=== PATIENT | female | born 1935 | race Caucasian/White ===

== ENCOUNTER 2017-09-08 11:22 | Observation (INO) | payer OTHER ==
[~2017-09-08] VITALS: Ht 162.6 cm; Wt 64.9 kg
[2017-09-08] VITALS (8 sets, daily range): BP systolic 122–142; BP diastolic 60–84; PULSE 60–121; TEMP 36.3–36.6; O2SAT 93–96; Ht 162.6 cm; Wt 64.9 kg
[2017-09-08] MEDS ORDERED: WARF5TAB90 PO (12:48)
[2017-09-08] MEDS ORDERED: NIFE30TA83 PO (12:48)
[2017-09-08] MEDS ORDERED: SIMV20TA2 PO (12:48)
[2017-09-08] MEDS ORDERED: ASPI81TA28 PO (12:48)
[2017-09-08] MEDS ORDERED: CLON0.2T PO (12:48)
[2017-09-08] MEDS ORDERED: HYZ/10015 PO (12:48)
[2017-09-08] MEDS ORDERED: LPR100 PO ×2 (12:48→15:35)
[2017-09-08] MEDS ORDERED: CLR10 PO (12:48)
--- NOTE | 2017-09-08 13:25 | History & Physical Bridge Note ---
H&P Re-Evaluation Bridge Note: I have examined the patient, reviewed the History & Physical and in the interval since the performance of the History & Physical I have noted the following changes of clinical significance: No changes noted
--- NOTE | 2017-09-08 13:28 | History and Physical ---
History & Physical Date Sep 08, 2017. Chief Complaint palpitations, SOB History of Present Illness The patient is a 81 year old female with complaints of SOB and palpitations Past Medical/Surgical History htn persistent atrial flutter hld dm huey ckd stage IV renal artery stenosis gerd Additional History Hepatic Disease: No Endocrine Disorder: No Kidney Disease: Yes Hypertension: Yes Heart Disease: Yes Bleeding Tendencies: No Infectious Diseases: No Home Medications Scheduled Aspirin (Aspirin Ec), 81 MG PO DAILY Hctz/Losartan (Hyzaar 25MG/100MG), 1 TAB PO DAILY Loratadine (Claritin), 10 MG PO DAILY Metoprolol Tartrate (Metoprolol Tartrate), 1 TAB PO BID Nifedipine Ext Rel (Procardia Xl Ext Rel), 90 MG PO HS Simvastatin (Zocor), 1 TAB PO HS Warfarin Sodium (Coumadin), 1 TAB PO DIRECTED Scheduled PRN Clonidine Hcl (Catapres), 1-2 TAB PO DAILY PRN for for Blood pressure Physical Examination Skin: warm/dry, no rash Head: normocephalic, atraumatic Neck: supple Respiratory/Chest: lungs clear, normal breath sounds Cardiovascular: no edema, no murmur, + abnormal rate, + abnormal rhythm Abdomen / GI: normal bowel sounds, non tender Neurologic/Psych: alert, oriented x 3 Diagnosis 1. persistent atrial flutter with RVR sympotmatic [id number] 5 htn hld dm huey ckd stage iv renal artery stenosis gerd ASA Classification: ASA Class III Plan of Treatment -for atrial flutter ablation and EPS; again explained the procedure and potential risks. She expressed an understanding and consent signed. She has had therapeutic INR for the last 4 weeks on a weekly basis-no CHANTAL needed.
--- NOTE | 2017-09-08 13:29 | Pre Sedation Assessment ---
Pre Sedation Assessment General Date of Sedation: Sep 08, 2017. Vital Signs Past 12 Hours Date Time Temp Pulse Resp B/P (MAP) Pulse Ox O2 Delivery O2 Flow Rate FiO2 09/08/17 12:49 36.6 121 16 141/84 (103) 96 Room Air Review Cardiovascular: + tachycardia, + irregularly irregular Lungs: lungs clear, normal breath sounds Pre-Sedation Airway Assessment Smoking Status: Never Smoker Hx of Sleep Apnea: No Short Thick Neck: No Thyro-mental Distance: < or =3 Finger Breadths Oral Cavity: Dentures Mallampati Classification: Class III ASA Classification: Class II NPO Status Date of Last Intake of Fluids: Sep 07, 2017 Time of Last Intake of Fluids: 1999 Date of Last Intake of Solids: Sep 07, 2017 Time of Last Intake of Solids: 1999 Procedure Planning Contraindications for Sedation: None Current Medications Reviewed: Yes Notes The planned sedation has been discussed with the patient. Informed Consent was obtained. I have identified the patient, determined the appropriateness of sedation and have assessed the patient immediately prior to the procedure. All medicine(s) and interventions are by my order.
[2017-09-08] MEDS ORDERED: FENTANYL CITRATE INJ 50 MCG/1 ML 2 ML VIAL ONE ×2 (13:44→14:34)
[2017-09-08] MEDS ORDERED: MIDAZOLAM HCL 5 MG/ML 1 ML VIAL ONE (13:44)
[2017-09-08] MEDS ORDERED: HEPARIN SOD (PORCINE) 1000 UNIT/ML 10 ML VIAL ONE (13:48)
[2017-09-08] MEDS ORDERED: ACETAMINOPHEN 325 MG TAB PO PRN (15:30)
--- NOTE | 2017-09-08 15:31 | Post Sedation Assessment ---
Post Sedation Assessment General Date of Sedation Sep 08, 2017. Vital Signs: Vital Signs Past 12 Hours Date Time Temp Pulse Resp B/P (MAP) Pulse Ox O2 Delivery O2 Flow Rate FiO2 09/08/17 12:49 36.6 121 16 141/84 (103) 96 Room Air Post Procedure Recovery Score Activity: (2) Moves 4 extremities * Respiration: (2) Deep breath/cough Circulation: (2) +/-20% PreAnes Value Consciousness: (2) Fully Awake Oxygen Saturation: (2) > 92% On Room Air Post Anesthesia Score: 10 Discharge Sedation Level of Care: Fast Track Phase II Post Sedation Plan On clinical assessment, the patient appears to have tolerated the sedation without complications. Patient is recovering as anticipated. Patient will continue to be monitored by nursing and may be discharged when sedation discharge criteria are met per below protocol. Upon Completions of procedure and additional 15 minutes continue every 5 minute vital signs and the P.A.R. score; then discharge to a Phase I or Fast Track to Phase II per the following guidelines: * Discharge Patient to appropriate Phase II area if PAR is 8 or greater or return to pre- procedure baseline. The post - procedure orders will be as directed. * If PAR score is less than 8 or not return to pre-procedure baseline then patient will follow Phase I monitoring till PAR is reached for Phase II. The Phase I may be done in procedure room or may call to secure a Phase I area. * If naloxone or flumazenil are used for reversal, hold in Phase I for an additional 60 -120 minutes before discharge to Phase II. Please call the Sedation Physician to re-evaluate and complete post-note for discharge to Phase II area. Do NOT discharge from procedure sedation or Phase 1 until post- sedation evaluation note is complete by procedure /sedation MD Sedation Discharge Instructions to be given to the patient at discharge to home.
--- NOTE | 2017-09-08 15:34 | [facility] Post Operative Brief Note ---
Immediate Operative Summary Operative Date Sep 08, 2017. Pre-Operative Diagnosis persistent atrial flutter/fib Post-Operative Diagnosis same, in addition to bidirectional block accross cavo-tricuspid isthmus and sinus bradycardia Procedure(s) Performed EPS, synchronized cardioversion, empiric radiofrequency ablation of cavo-tricuspid isthmus Surgeon ashley crowder Career Development Facilitator Surgeon(s) none Estimated Blood Loss < 5cc Findings See Below see official report Fluids (cc crystalloids) 600 Specimens none Drains None Anesthesia Type IV Sedat Cons RN Only Complication(s) none Disposition Accompanied Pt To Recover: yes Disposition: PCU
--- NOTE | 2017-09-08 15:36 | Discharge Instructions ---
Discharge Instructions Date of Service Sep 08, 2017. Admission Reason for Admission: Atrial Flutter Discharge Discharge Diagnosis / Problem: persistent atrial flutter/fib Discharge Goals Goal(s): Improve function Activity Recommendations Activity Limitations: as noted below Lifting Limitations: no more than 10 pounds (no heavy lifting or squating for 1 month) Shower/Bathe: tomorrow Driving or Machine Use: resume 1 day after discharge . Current Hospital Diet Patient's current hospital diet: AHA Diet (Heart Healthy) Discharge Diet Recommended Diet: AHA Diet (Heart Healthy) Procedures Procedures Performed: EPS, synchronized cardioversion, empiric radiofrequency ablation of cavo-tricuspid isthmus Pending Studies Studies pending at discharge: no Medical Emergencies . Who to Call and When: Medical Emergencies: If at any time you feel your situation is an emergency, please call 911 immediately. . Non-Emergent Contact Non-Emergency issues call your: Farm Worker . . "Provider Documentation" section prepared by Albina Hurst. .
--- NOTE | 2017-09-08 15:42 | Discharge Summary ---
Discharge Summary Date of Service Sep 08, 2017. Discharge Summary Admission Date: 09/08/2017 Discharge Date: Sep 09, 2017 Discharge Disposition: Home Principal Diagnosis: persistent atrial flutter/fib Secondary Diagnoses/Problems: Sinus bradycardia-on high dose metoprolol HTN HLD JULIANA DM CKD Stage IV SUSY GERD Procedures: EPS, synchronized cardioversion, 3d mapping of his bundle and C/S Os and CTI; radiofrequency ablation of CTI Medication Reconciliation New Medications: Amiodarone HCl (Amiodarone HCl) 200 Mg Tab 200 MG PO QAM for 30 Days, #30 TAB Metoprolol Tartrate (Metoprolol Tartrate) 100 Mg Tab 25 MG PO BID for 30 Days, #12 TAB Continued Medications: Aspirin (Aspirin Ec) 81 Mg Tab 81 MG PO DAILY Clonidine Hcl (Catapres) 0.2 Mg Tab 1-2 TAB PO DAILY PRN for for Blood pressure for 30 Days, TAB 5 Refills Hctz/Losartan (Hyzaar 25MG/100MG) Tab 1 TAB PO DAILY, #30 TAB Loratadine (Claritin) 10 Mg Tab 10 MG PO DAILY, TAB Nifedipine Ext Rel (Procardia Xl Ext Rel) 30 Mg Tabcr 90 MG PO HS, TAB Simvastatin (Zocor) 20 Mg Tab 1 TAB PO HS for 90 Days, #90 TAB 1 Refill Warfarin Sodium (Coumadin) 5 Mg Tab 1 TAB PO DIRECTED for 90 Days, TAB 1 Refill Discontinued Medications: Metoprolol Tartrate (Metoprolol Tartrate) 100 Mg Tab 1 TAB PO BID Admission Information Physical Exam (per Admitting): aaox3, NAD Supple, No JVD Irregular S1/S2 tachycardia; no murmur CTA b/l No w/r/r Soft NT/ND No edema b/l LE No focal deficits Skin intact Hospital Course Pt admitted for elective EPS with ablation due to persistent atrial flutter. She underwent EPS with empiric radiofrequency ablation of the cavo-tricuspid isthmus and synchronized cardioversion due to AFib. She was monitored overnight. She has marked sinus bradycardia but was on high dose metoprolol this has been decreased. And discharged overnight. Total time spent on discharge = >30 minutes This includes examination of the patient, discharge planning, medication reconciliation, and communication with other providers. Discharge Instructions ACTIVITY RECOMMENDATIONS: It is common to feel weak and fatigue for a few days. * Do not drive or operate any motorized equipment for the next 1 day. * Limit stair usage (2 or 3 trips a day only) for the next three days. * Do not lift anything heavier than 10 pounds for the next 7 days. * Do not engage in vigorous exercise or any sports for the next 7 days. * You may shower the day after your procedure, but do not immerse the area for three days. Cleanse the site gently with soap and water. SPECIAL CARE INSTRUCTIONS: * You may replace the pressure dressing or band-aid the morning after the procedure. * After your procedure, it is normal to have a small bruise or small lump at the site. Examine your site daily for any change in the bruise or lump, redness, swelling, drainage or numbness. Notify your doctor if any change. BLEEDING: * If there is a small amount of bleeding at the site, lie down and apply firm pressure with a clean cloth for ten minutes. When the bleeding stops, lie quietly keeping the procedure limb straight for six hours. Notify your doctor as soon as possible. * If the bleeding does not stop after ten minutes or if there is a large amount of bleeding or spurting, call 911 immediately. Continue to lie down and hold firm pressure until help arrives. SKIN IRRITATION: * You may experience some redness and/or swelling in the area where radiation was administered. If any skin irritation occurs, please contact your family physician. FOLLOW UP VISIT: Keep any scheduled doctor appointments.
[2017-09-08] MEDS ORDERED: IV FLUIDS COMPLETED PRN (15:45)
[2017-09-08] MEDS ORDERED: CRD200 PO (15:51)
[2017-09-08] MEDS ORDERED: AMIODARONE 200 MG TAB PO ONE (16:30)
[2017-09-08 16:51] LABS: HEMATOCRIT 43.2 % (37-47); HEMOGLOBIN 14.8 g/dL (12.0-16.0); MEAN CELL VOLUME 94.5 fL (80-100); MEAN CORPUSCULAR HEMOGLOBIN 32.4 pg (25-34); PLATELET COUNT 176 K/uL (130-400); RED CELL DISTRIBUTION WIDTH CV 13.9 % (11.5-14.5); RED CELL DISTRIBUTION WIDTH SD 47.4 fL (36.4-46.3); WHITE BLOOD COUNT 9.01 K/uL (4.8-10.8)
[2017-09-08 16:52] LABS: MEAN CORPUSCULAR HGB CONC 34.3 g/dl (32-36)
[2017-09-08 16:57] LABS: INR 2.6 (0.9-1.1)
[2017-09-08] MEDS ORDERED: WARFARIN SOD 5 MG TAB PO SCH (18:00)
--- NOTE | 2017-09-08 20:02 | OPERATIVE REPORT ---
DATE OF OPERATION: 09/08/2017 PREOPERATIVE DIAGNOSIS: Persistent atrial flutter with rapid ventricular response. POSTOPERATIVE DIAGNOSES: Persistent atrial flutter with rapid ventricular response, atrial fibrillation, sinus bradycardia, and bidirectional block across the cavotricuspid isthmus. SURGEON: Albina Hurst DO. AVIATION MECHANIC: None. ANESTHESIA: Monitored conscious sedation administered under my supervision by Elizabeth Farah. Start time 14:04, end time 15:30. A total of 4 mg of Versed, 100 mcg fentanyl. IV FLUIDS: 600 mL. BLOOD LOSS: Less than 10 mL COMPLICATIONS: None. CONDITION: Stable. URINE OUTPUT: Not applicable. SPECIMENS: None. FINDINGS: See below. DRAINS: None. INDICATIONS: This is a 81-year-old female with past medical history for hypertension, hyperlipidemia, carotid artery stenosis, diabetes, chronic kidney disease stage IV, renal artery stenosis, and gastroesophageal reflux disease. Back in May of this year, she was admitted due to atrial flutter with rapid ventricular response, started on metoprolol and Coumadin, CHADS2-VASc score of 5. She continues to be symptomatic and on high dose of beta blockers and still having rapid ventricular rate, so she was recommended a flutter ablation. CONSENT: Consents were obtained prior to patient going into electrophysiology lab. Patient referred to risks, benefits, and alternatives to the procedure. Risks include but not limited to sudden cardiac , cardiac disease, vascular accident, myocardial infarction, injury to the blood vessels, chamber of the heart, [place] electrical system where she needed permanent pacemaker, bleeding, and infection. Patient understood these risks and agreed to the procedure as planned. Informed consent was obtained. Patient did have serial weekly INR checks for the last month, which were all therapeutic, greater than 2, so this deferred her from needing a CHANTAL prior to the procedure. DESCRIPTION OF THE PROCEDURE: Patient was brought to electrophysiology lab in a fasting state. She was placed on continuous color printer operator. A timeout was performed to ensure patient identity and procedure correctly. Patient was prepped and draped over the bilateral groins in normal surgical standard fashion. Monitored conscious sedation was given throughout the procedure for patient's comfort level. [place] precautions maintained throughout the procedure. 10 mL of 1% lidocaine was given in the bilateral groins for local anesthesia, then using modified Seldinger technique under ultrasound guidance, venous access was obtained in the following manner. The left femoral vein had a 7-Mexican sheath followed by a 20 pole Halo catheter positioned around the high right atrium. A 7-Mexican sheath followed by Biosense DF curve Decapolar catheter positioned out in the coronary sinus. The right femoral vein had initially a 6-Mexican sheath that was swapped out for an SRO followed them by the Biosense SmartTouch DF curve ablation catheter. With the Halo catheter and the CF catheter in place, it revealed that the patient was actually in atrial fibrillation with it being more organized in the right part of the heart, so synchronized cardioversion at 150 J was performed which converted patient to sinus bradycardia. I took the ablation catheter and placed it over the His bundle and measured an AH of 66 msec, HV of 46 msec. We did 3D mapping with the ablation catheter of the His bundle as well as the coronary sinus os and then of the cavotricuspid isthmus. We did measure the distance across the cavotricuspid isthmus before an empiric ablation was performed. Pacing from the coronary sinus proximal and measuring to halo distal was 114 msec. Pacing from Halo distal which was out on the lateral wall of the right atrium and measuring to the coronary sinus proximal was 108 msec. We then positioned the ablation catheter on the cavotricuspid isthmus from the tricuspid valve down to the IVC and gave a series of radiofrequency ablations at 35 W anywhere from 30 seconds to 1 minute in duration while pacing from the proximal coronary sinus. We then had bidirectional block, and I set up to do an electrophysiology study by first putting the ablation catheter over the His bundle to get a His reading and then placing it into the right ventricle. Post-ablation electrophysiology study results are following: Sinus cycle length 876 msec, DC 162 msec, QRS 108 msec, AH 80 msec, HV 42 msec, AV Wenckebach 510 msec, AV node ERP was 800/400 and 600/400. The right ventricular ERP was 600/300 and 400/310. The atrial ERP was 800/320 and 600/300. After ample waiting period post ablation, I again confirmed that there was bidirectional block with halo distal pacing from the lateral right atrial wall and measuring this to coronary sinus proximal, which was 156 msec. I then paced from the coronary sinus prox and measured to the Halo distal lateral to our line and was 150 msec. It was declared this was a successful empiric and bidirectional block, so all the catheters removed from the body. The sheaths were pulled, and manual compression was used to control hemostasis. IMPRESSION: 1. Persistent atrial flutter/atrial fibrillation, status post synchronized cardioversion to sinus bradycardia and an empiric radiofrequency ablation of the cavotricuspid isthmus. 2. Bidirectional block across the cavotricuspid isthmus. 3. Sinus bradycardia/early signs of tachybrady syndrome. 4. Normal atrioventricular michelle function. PLAN: Monitor patient overnight, 12-lead ECG. She is not allowed to do any heavy lifting or squatting for 1 week. She was on a high dose of metoprolol. We will come down on that to 25 mg twice a day. She will continue her Coumadin and have weekly INR checks as she is status post a cardioversion back to sinus rhythm. In addition, I will start her on low dose amiodarone 200 mg a day to hopefully prevent any further atrial fibrillation. I have also informed the Coumadin clinic that she will be starting amiodarone, so they can watch the Coumadin closely. She will follow up with me in the office in 1 month's time. I attest to the content of the Intraoperative Record and any orders documented therein. Any exception s are noted below.
[2017-09-08] MEDS: METOPROLOL TARTRATE 25 MG TAB PO SCH (20:42)
[2017-09-08] MEDS ORDERED: NIFEdipine 30 MG CR TAB PO SCH (21:00)
[2017-09-08] MEDS ORDERED: SIMVASTATIN 20 MG TAB PO SCH (21:00)
[2017-09-09 00:06] VITALS: BP 125/61; PULSE 69; TEMP 36.8; O2SAT 95
[2017-09-09 04:09] VITALS: BP 114/60; PULSE 67; TEMP 37; O2SAT 93
[2017-09-09 06:24] LABS: INR 3.2 (0.9-1.1)
[2017-09-09] MEDS: METOPROLOL TARTRATE 25 MG TAB PO SCH (07:30)
[2017-09-09 08:15] VITALS: BP 121/59; PULSE 72; TEMP 37; O2SAT 93
[2017-09-09 08:20] VITALS: O2SAT 93
[2017-09-09] MEDS ORDERED: LOSARTAN/HCTZ 50-12.5 EA TAB PO SCH (09:00)
[2017-09-09] MEDS ORDERED: AMIODARONE 200 MG TAB PO SCH (09:00)
[2017-09-09] MEDS ORDERED: ASPIRIN 81 MG ECTAB PO SCH (09:00)
[2017-09-09] MEDS ORDERED: LORATADINE 10 MG TAB PO SCH (09:00)
[2017-09-09 11:51] VITALS: BP 118/61; PULSE 76; TEMP 36.8; O2SAT 94
[2017-09-09 12:01] VITALS: O2SAT 93
--- NOTE | 2017-09-10 14:52 | Cardiology Follow-Up ---
Subjective Subjective Date of Service: Sep 09, 2017. Pt evaluation today including: conversation w/ patient, physical exam Pain: none Review of Systems Constitutional: No fever, No fatigue Respiratory: No shortness of breath, No dyspnea on exertion Cardiac: No chest pain, No edema, No palpitations Abdomen: No nausea, No diarrhea Female : No dysuria Endo: No fatigue Skin: No rash Objective Vital Signs Last Vital Signs Documentation Date Time Temp Pulse Resp B/P (MAP) Pulse Ox O2 Delivery O2 Flow Rate FiO2 09/09/17 12:01 93 Room Air 09/09/17 11:51 36.8 76 18 118/61 (80) Physical Exam: General Appearance: WD/WN, no apparent distress Eyes: bilateral eyes PERRL, bilateral eyes EOMI ENT: normal ENT inspection Neck: supple, no JVD Respiratory/Chest: lungs clear, normal breath sounds Cardiovascular: regular rate, rhythm, no edema, no murmur Abdomen: soft Neurologic/Psychiatric: alert, oriented x 3 Skin: warm/dry (b/l groins soft and no hematoma or ecchymosis) Assessment and Plan Impression: 1. persistent atrial flutter/fib s/p cardioversion and empiric flutter ablation 2. Sinus bradycardia-on high dose metoprolol 3. HTN 4. HLD 5. JULIANA 6. DM 7. CKD Stage IV 8. SUSY 9. GERD Plan: -Ok for discharge home -start amiodarone 200mg daily -decrease metoprolol Discharge planning: home Medications: Medications Administered Medications (Trade) Dose Ordered Sig/Duy Route Start Time Stop Time Status Last Admin Dose Admin Aspirin (Ecotrin Tab) 81 mg DAILY PO 09/09/17 09:00 09/09/17 12:11 DC 09/09/17 07:30 81 MG HCTZ/Losartan Potassium (Hyzaar 50-12.5 Tab) 1 tab DAILY PO 09/09/17 09:00 09/09/17 12:11 DC 09/09/17 07:30 1 TAB Loratadine (Claritin Tab) 10 mg DAILY PO 09/09/17 09:00 09/09/17 12:11 DC 09/09/17 07:30 10 MG Metoprolol Tartrate (Lopressor Tab) 25 mg BID PO 09/08/17 21:00 09/09/17 12:11 DC 09/09/17 07:30 25 MG Nifedipine (Procardia Xl Tab) 90 mg HS PO 09/08/17 21:00 09/09/17 12:11 DC 09/08/17 20:43 90 MG Simvastatin (Zocor Tab) 20 mg HS PO 09/08/17 21:00 09/09/17 12:11 DC 09/08/17 20:43 20 MG Warfarin Sodium (Coumadin Tab) 5 mg 1600 PO 09/08/17 18:00 09/09/17 12:11 DC 09/08/17 18:15 5 MG Amiodarone HCl (Cordarone Tab) 200 mg QAM PO 09/09/17 09:00 09/09/17 12:11 DC 09/09/17 07:30 200 MG Amiodarone HCl (Cordarone Tab) 200 mg NOW ONCE PO 09/08/17 16:30 09/08/17 16:31 DC 09/08/17 20:42 200 MG Lab Results: ECG: SR Telemetry: SR
== END 2017-09-09 12:10 | disposition home or self-care (01) ==
LOC: C.EP 11:22 → C.2E 15:05 → EDBEDREQ 15:14 → ENRESERV 15:24
PROVIDERS: ADMIT Internal Medicine; ATTEND Internal Medicine
DX: I48.92 Unspecified atrial flutter (principal); I48.1 Persistent atrial fibrillation; R00.1 Bradycardia, unspecified; I12.9 Hypertensive chronic kidney disease with stage 1 through stage 4 chronic kidney disease, or unspecified chronic kidney disease; E78.5 Hyperlipidemia, unspecified; E11.22 Type 2 diabetes mellitus with diabetic chronic kidney disease; N18.4 Chronic kidney disease, stage 4 (severe); I70.1 Atherosclerosis of renal artery; K21.9 Gastro-esophageal reflux disease without esophagitis; Z79.01 Long term (current) use of anticoagulants; Z79.82 Long term (current) use of aspirin; Z79.899 Other long term (current) drug therapy; Z90.89 Acquired absence of other organs; Z82.49 Family history of ischemic heart disease and other diseases of the circulatory system; Z83.3 Family history of diabetes mellitus; Z82.3 Family history of stroke; Z83.49 Family history of other endocrine, nutritional and metabolic diseases